=== PATIENT | female | born 1985 | race Two or more races ===

== ENCOUNTER 2019-03-18 21:52 | Emergency (ER) | payer SELFPAY ==
[~2019-03-18] VITALS: Ht 172.7 cm; Wt 78.0 kg
[2019-03-18 21:55] VITALS: BP 131/81
== END 2019-03-18 23:31 | disposition home or self-care (01) ==
LOC: ER 21:57 → EDSEX 21:57 → ER 23:31
DX: F91.9 Conduct disorder, unspecified (principal)